=== PATIENT | male | born 1995 | race Caucasian/White ===

== ENCOUNTER 2017-05-19 11:26 | Emergency (ER) | payer OTHER ==
[~2017-05-19] VITALS: Ht 180.3 cm; Wt 94.7 kg
[2017-05-19] MEDS ORDERED: DEXAMETHASONE 4 MG TABLET ONE (12:21)
[2017-05-19] MEDS ORDERED: HYDROcodone/APAP 7.5-325MG/15ML UDC ONE (12:21)
[2017-05-19] MEDS ORDERED: DEXAMETHASONE 4 MG/ML, 1ML PO ONE (12:30)
[2017-05-19] MEDS ORDERED: HYDROcodone/APAP 7.5-325MG/15ML UDC PO ONE (12:30)
[2017-05-19] MEDS ORDERED: BICILLIN-LA 1,200,000 UNITS/2 ML IM ONE (12:30)
[2017-05-19 13:20] VITALS: BP 110/77
== END 2017-05-19 13:25 | disposition home or self-care (01) ==
LOC: ED 13:00
DX: J02.0 Streptococcal pharyngitis (principal)
CPT/HCPCS: 96372; 99283; J0561; J1100